=== PATIENT | female | born 1985 | race Caucasian/White ===

== ENCOUNTER 2019-04-18 01:32 | Emergency (ER) | payer OTHER ==
[~2019-04-18] VITALS: Ht 160 cm; Wt 60.9 kg
[2019-04-18] MEDS ORDERED: IBUPROFEN 600MG TABLET PO ONE (03:00)
[2019-04-18] MEDS ORDERED: ACETAMINOPHEN 325MG TABLET PO ONE (03:00)
[2019-04-18] MEDS ORDERED: BACITRACIN ZINC OINT UDPKT TOP ONE (03:00)
[2019-04-18] MEDS ORDERED: LIDOCAINE HCL 1% 20ML VIAL (Pyxis) INJ INFIL ONE (05:30)
[2019-04-18 06:43] VITALS: BP 107/63
== END 2019-04-18 06:46 | disposition home or self-care (01) ==
LOC: ER 02:27
DX: S62.601B Fracture of unspecified phalanx of left index finger, initial encounter for open fracture (principal); X58.XXXA Exposure to other specified factors, initial encounter; Y93.89 Activity, other specified; Y92.89 Other specified places as the place of occurrence of the external cause; Y99.8 Other external cause status
CPT/HCPCS: 73140; 99283; J3490